=== PATIENT | male | born 1995 | race African-American/Black ===

== ENCOUNTER 2023-04-13 10:49 | Emergency (ER) | payer OTHER ==
[~2023-04-13] VITALS: Ht 182.9 cm; Wt 122.5 kg
[2023-04-13 10:52] VITALS: PULSE 116; RESP 18
[2023-04-13 11:09] VITALS: BP 137/89; TEMP 97.4; O2SAT 99
== END 2023-04-13 14:04 | disposition home or self-care (01) ==
LOC: ER 11:13
DX: B34.9 Viral infection, unspecified (principal); H92.01 Otalgia, right ear; Z20.822 Contact with and (suspected) exposure to COVID-19
CPT/HCPCS: 99283; 87426; C9803